=== PATIENT | male | born 1945 | race Caucasian/White ===

== ENCOUNTER → 2017-11-28 | Outpatient (CLI) | payer OTHER ==
[~2017-11-28] MED LIST: ASPI81TA25 PO; ATOR-24 PO; CLOP1TAB5 PO; LISI2.5T5 PO; METO25TA3 PO
[2017-11-28 12:06] LABS: HEMATOCRIT 41.2 % (42-52); HEMOGLOBIN 14.1 g/dL (14.0-18.0); MEAN CELL VOLUME 93.8 fL (80-100); MEAN CORPUSCULAR HEMOGLOBIN 32.1 pg (25-34); MEAN CORPUSCULAR HGB CONC 34.2 g/dl (32-36); MEAN PLATELET VOLUME 10.7 fL (7.4-10.4); PLATELET COUNT 131 K/uL (130-400); RED CELL DISTRIBUTION WIDTH CV 12.9 % (11.5-14.5); RED CELL DISTRIBUTION WIDTH SD 44.4 fL (36.4-46.3)
[2017-11-28 12:41] LABS: ALT/SGPT 23 U/L (12-78); AST/SGOT 16 U/L (15-37); BLOOD UREA NITROGEN 17 mg/dl (7-18); CALCIUM 8.7 mg/dl (8.5-10.1); CARBON DIOXIDE 27 mmol/L (21-32); CREATININE 1.14 mg/dl (0.60-1.40); GLUCOSE 111 mg/dl (70-99); POTASSIUM 3.7 mmol/L (3.5-5.1); SODIUM 136 mmol/L (136-145)
[2017-11-28 12:44] LABS: CHOLESTEROL 192 mg/dl (0-200); LDL CHOLESTEROL CALCULATED 107 mg/dl
== END | disposition home or self-care (01) ==
LOC: C.LAB1850 10:28
PROVIDERS: ATTEND Internal Medicine Cardiovascular Disease
DX: I10 Essential (primary) hypertension (principal); E78.5 Hyperlipidemia, unspecified; I25.10 Atherosclerotic heart disease of native coronary artery without angina pectoris; D72.819 Decreased white blood cell count, unspecified; R07.89 Other chest pain

== ENCOUNTER 2019-12-08 08:39 | Inpatient (IN) ==
[2019-12-08] MEDS ORDERED: NITROGLYCERIN SL 0.4 MG/TAB TAB ONE (08:54)
[2019-12-08] MEDS ORDERED: ASPIRIN CHEW 324 MG ONE (08:54)
[2019-12-08] MEDS ORDERED: NITROGLYCERIN SL 0.4 MG/TAB TAB SL PRN (08:57)
[2019-12-08] MEDS ORDERED: ASPIRIN CHEW 324 MG PO STA (08:57)
[2019-12-08] MEDS ORDERED: SODIUM CHLORIDE 0.9% 500 ML IV SCH (09:00)
[2019-12-08] MEDS ORDERED: OPTIRAY 320 125ml IV PRN (09:06)
[2019-12-08 09:12] LABS: Basophils # (auto) 0.01 K/uL (0-0.2); Basophils % (auto) 0.2 %; Eosinophils # (auto) 0.05 K/uL (0-0.5); Eosinophils % (auto) 0.8 %; Hematocrit (blood only) 42.5 % (42-52); Hemoglobin 14.6 g/dL (14.0-18.0); Immature Granulocytes # (auto) 0.01 K/uL (0.00-0.02); Immature Granulocytes % (auto) 0.2 %; Lymphocytes # (auto) 0.82 K/uL (1.2-3.4); Lymphocytes % (auto) 13.2 %; Mean Corpuscular Hemoglobin 31.9 pg (25-34); Mean Corpuscular Hgb Conc 34.4 g/dL (32-36); Mean Corpuscular Volume 92.8 fL (80-100); Mean Platelet Volume 10.5 fL (7.4-10.4); Monocytes # (auto) 0.57 K/uL (0.11-0.59); Monocytes % (auto) 9.2 %; Neutrophils # (auto) 4.73 K/uL (1.4-6.5); Neutrophils % (auto) 76.4 %; Platelet Count 147 K/uL (130-400); RDW Standard Deviation 44.1 fL (36.4-46.3); Red Blood Count 4.58 M/uL (4.7-6.1); White Blood Count 6.19 K/uL (4.8-10.8)
[2019-12-08 09:12] LABS: iSTAT Creatinine 1.2 mg/dl (0.6-1.3); iSTAT Ionized Calcium 1.14 mmol/l (1.12-1.32); iSTAT Potassium 3.6 mmol/L (3.3-5.0)
[2019-12-08 09:24] LABS: Albumin Level 3.6 gm/dl (3.4-5.0); BUN Creatinine Ratio 11.9 (10-20); Calcium 8.8 mg/dl (8.5-10.1); Est GFR (African American) 66.4; Est GFR (Non-African American) 57.3; Potassium 3.5 mmol/L (3.5-5.1)
[2019-12-08] MEDS ORDERED: MoRPHine SULFATE 2 MG/ML CARP ONE (09:24)
[2019-12-08] MEDS ORDERED: MoRPHine SULFATE 2 MG/ML CARP IV STA (09:24)
[2019-12-08] MEDS ORDERED: ONDANSETRON INJ 2 MG/ML 2 ML VIAL IV STA (09:24)
[2019-12-08] MEDS ORDERED: ONDANSETRON INJ 2 MG/ML 2 ML VIAL ONE (09:24)
[2019-12-08 09:29] LABS: Partial Thromboplastin Ratio 0.9; Partial Thromboplastin Time 23.9 Seconds (21.0-31.0)
--- NOTE | 2019-12-08 09:33 | CT Scan Report ---
CT angio chest dissec wo/w con CT DOSE: HISTORY: Chest pain eval for dissection TECHNIQUE: Multiaxial CT images of the chest, abdomen, and pelvis were performed both before and afte r the intravenous administration of contrast to evaluate the aorta. Maximal intensity projection imag es were also obtained. A dose lowering technique was utilized adhering to the principles of ALARA. COMPARISON STUDY: 08/06/2018 FINDINGS: Thoracic aorta shows no evidence for aneurysm or dissection. Root of a thoracic aorta is 3. 5 cm. The lungs show slight interstitial change is considered primarily chronic. There is a 7 mm righ t middle lobe nodule unchanged from the prior study. The 4 mm subpleural nodule of the right middle l obe is unchanged. No new or interval findings. Right renal cyst unchanged. IMPRESSION: No evidence for an aortic dissection. Lungs are grossly clear. Stable small bilateral pulmonary nodul es. ACT 112: Negative or not required by law. The above report was generated using voice recognition software. It may contain grammatical, syntax or spelling errors. Electronically signed by: Aleksey Najera M.D. 12/08/2019 9:32 AM
[2019-12-08 09:36] LABS: Albumin Globulin Ratio 0.9 (0.9-2); Bilirubin,Total 0.7 mg/dl (0.2-1); Globulin 3.8 gm/dl (2.5-4.0); Total Protein 7.4 gm/dl (6.4-8.2); Troponin I 0.212 ng/ml (0-0.045)
--- NOTE | 2019-12-08 09:39 | CT Scan Report ---
CT angio abdomen pelvis w con CLINICAL HISTORY: 74 years-old Male presenting with epigastric pain, eval for AAA/disect. TECHNIQUE: Multidetector CT angiography of the abdomen and pelvis was performed after the administrat ion of intravenous contrast. 3-D volumetric and/or maximum intensity projection (MIP) images were sub sequently reconstructed for review. IV contrast: 120 mL of Optiray 320. One or more dose lowering luana hniques were used consistent with the principles of ALARA (as low as reasonably achievable), includin g automatic exposure control, mA or kV adjustment to individual patient size, and/or use of iterative reconstruction. Stenosis measurements were based on NASCET-like criteria (distal lumen diameter as t he denominator for stenosis measurement). COMPARISON: 08/06/2018. CT DOSE (mGy.cm): The estimated cumulative dose is 1477.96 mGy.cm. FINDINGS: Office Support Specialist topogram: Unremarkable. Vasculature: Mild atherosclerosis of the abdominal aorta. Aneurysmal dilatation of the infrarenal portion measurin g up to 2.7 x 2.7 cm. This previously measured 2.6 cm. The length of the aneurysm measures 3.5 cm, si milar to prior. The degree of mural thrombus/noncalcified atherosclerotic plaque has increased and re sults in less than 50% luminal stenosis. Note made of a left retroaortic renal vein. Origins of the m ajor branch vessels widely patent, however, up to 50% stenosis evident in the proximal 1 cm of the ce liac artery with poststenotic mild dilatation. This may relate to the phase of respiration and physio logic compression by the diaphragmatic crura. Mild atherosclerosis of the origin and proximal right r enal artery without stenosis. 2 left renal arteries noted. Inferior mesenteric artery also patent. Bi lateral common, internal, and external iliac arteries widely patent. Lateral common, superficial and deep femoral arteries patent in the visualized portions. Remaining abdomen and pelvis: Lung bases: Normal heart size. No pericardial or pleural effusion. Minimal dependent changes likely a telectasis. Mild bronchial wall thickening. Subpleural polygonal solid 5 mm nodule in the right middl e lobe, unchanged. Liver: Normal morphology. No liver lesion allowing for the early arterial phase of contrast. Conventi onal hepatic arterial anatomy. Biliary: No intrahepatic or extrahepatic biliary ductal dilatation. Normal gallbladder. Pancreas: Normal. Spleen: Normal allowing for the phase of contrast. Adrenal glands: Normal. Kidneys and ureters: Prominent parapelvic cyst at the lower pole the right kidney. Simple cyst of the lower pole the left kidney. No hydronephrosis or nephrolithiasis. Ureters nondistended. Bladder: Normal. Pelvic organs: Prostate enlargement likely secondary to benign prostatic hyperplasia. Bowel: Mild diverticulosis of the proximal sigmoid colon without wall thickening or pericolonic infla mmatory change. The appendix is normal. No bowel obstruction. Peritoneal cavity: No free fluid or intraperitoneal gas. Lymph nodes: No enlarged lymph nodes in the abdomen or pelvis. Abdominal wall: Normal. Musculoskeletal: Degenerative changes of the spine. IMPRESSION: 1. Infrarenal abdominal aortic aneurysm measuring 2.7 x 2.7 cm and extending along the length of 3.5 cm. This appears slightly increased in extent though the transverse diameter is similar to prior. Mu ral thrombus/noncalcified atherosclerotic plaque increased from prior and results in less than 50% rachelle brian stenosis. 2. No evidence of dissection or focal occlusion. 3. Branch vessels widely patent. 4. Mild diverticulosis coli. No diverticulitis. 5. Stable solid right middle lobe pulmonary nodule. ACT 112: Negative or not required by law. Electronically signed by: Devon Correa M.D. 12/08/2019 9:38 AM
[2019-12-08] MEDS ORDERED: HEPARIN (PORCINE) 1000 UNIT/ML 10 ML (CATH LAB USE ONLY) ONE (10:07)
[2019-12-08] MEDS ORDERED: NITROGLYCERIN/D5W 100MCG/ML 20ML SYR ONE (10:07)
[2019-12-08] MEDS ORDERED: MIDAZOLAM HCL 1 MG/ML 2ML VIAL ONE (10:07)
[2019-12-08] MEDS ORDERED: fentaNYL citrate 100 MCG/2 ML VIAL ONE (10:07)
[2019-12-08] MEDS ORDERED: NiCARDipine HCL INJ 2.5 MG/ML 10 ML AMP ONE (10:07)
[2019-12-08] MEDS ORDERED: EPTIFIBATIDE 0.75 MG/ML 75MG VIAL (CATH LAB USE ONLY) ONE (10:36)
[2019-12-08] MEDS ORDERED: EPTIFIBATIDE 2 MG/ML 10 ML VIAL (CATH LAB USE ONLY) IV ONE (10:36)
[2019-12-08] MEDS ORDERED: ATROPINE SULFATE 0.1 MG/ML 10ML SYR IV ONE (10:51)
[2019-12-08] MEDS ORDERED: ADENOSINE IV SOLN 3 MG/ML 20 ML VIAL IV ONE (11:07)
[2019-12-08] MEDS ORDERED: ADENOSINE IV SOLN 3 MG/ML 2 ML VIAL IV ONE (11:08)
[2019-12-08] MEDS ORDERED: TICAGRELOR 90 MG TAB PO ONE (11:13)
--- NOTE | 2019-12-08 11:50 | Cardiac Catheterization ---
Cardiac Cath Procedure Full Procedure Date December 08, 2019 Pre-Procedure Diagnosis Pre-Procedure Diagnosis: STEMI AUC Score AUC Score: 09 Post-Procedure Diagnosis Post-Procedure Diagnosis: Severe CAD Procedure(s) Performed Procedure(s) Performed: Coronary Angiography, Aspiration Thrombectomy and Drug Eluting Stent Remote Sensing Surveyor Ti Archibald MD Estimated Blood Loss Estimated Blood Loss: < 15 ml Medication(s) Medication(s): Adenosine, Aspirin, Fentanyl, Heparin, Hydralazine, Integrilin, Lidocaine 1%, Nicardipine, Nitroglycerin and Versed Summary of Findings LMT: large, bifurcates. mild disease LAD: large, trans apical. S1 and D1 small. Proximal mild disease. Mid vessel stent 100% thrombotic with MAGALY 0 flow. LCx: large, nondominant. mid vessel mild diffuse disease. Distal vessel becomes small. OM1 small-ok, OM2 large, branching. No disease. PLB1+2 small. RCA: large and dominant. proximal 70-80% stenosis. Mid 40%. Distal ok. PDA and PLB ok PCI to LAD: aspiration thrombectomy--> MAGALY I flow. Distal LAD just after stent is 80% focal. Diffuse thrombus in stent. D2 small, D3 medium and branching. 100% --> 0% post PCI ( 2 overlapped HUMBERTO to mid LAD and extending past distal stenosis no dissection/perforation post PCI MAGALY 2.5 post PCI Hemodynamics Rest Ao:: 124/61 mm Hg, mean 91 mm Hg Final Ao: 40/74 mm Hg, mean 101 mm Hg LV: not performed Recommendations Recommendations: PCI without planned CABG and Management Recommendatons (DAPT with ASA and Brilinta for at least 1 year. Staged PCI of RCA. GDMT with beta otoniel, statin, +/- PCI) Specimens Specimens: None Radiation Exposure (mGy) 2062 Contrast (mls) 150 ml Procedural Complication(s) None Disposition ICU I attest to the content of the Intraoperative Record and any orders documented therein. Any exceptions are noted below. [facility] Data: Medical Office Technologist Cardiac Status Clinical evaluation leading to the procedure CAD Presenation: STEMI Anginal Classification: CCS IV Heart Failure: No Cardiogenic Shock within 24 Hours: No Cardiac Arrest within 24 Hours: No Imaging Studies Past 6 Months: No Stress Studies Past 6 Months: Yes Stress Echocardiogram: Yes - Negative STEMI OR Non-STEMI Symptom Onset Date: 12/08/19 Symptom Onset Time: 07:00 Thrombolytics: No Coronary Anatomy Dominant: Right Left Main (% Stenosis): Proximal LAD (% Stenosis): Mid (100% stent thrombosis) and Distal (80%) Circumflex (% Stenosis): Mid (mild) RCA (% Stenosis): Proximal (70-80%) and Mid (40%) Diagnostic Physicians Name: Ti Archibald MD Status: Emergency Closure Device Percutaneous Entry Location: Radial Closure Device: Radial Band Recommendations: PCI without planned CABG and Management Recommendatons (DAPT with ASA and Brilinta for at least 1 year. Staged PCI of RCA. GDMT with beta otoniel, statin, +/- PCI) PCI Indication: Staged PCI (RCA) First Noted: First EKG Lesion Segment Name: mid LAD Culprit Artery: Yes Stenosis Prior to Rx (%): 100% Chronic Total Occlusion: No Pre-Procedure MAGALY Flow: 0 Previously Treated Lesion: Timeframe: 1-2 years (2012) Treated with Stent: Yes In-Stent Thrombosis: Yes Stent Type: HUMBERTO Yes Lesion Complexity: Non-High/Non-C Lesion Length (mm): 28 Thrombus Present: Yes Bifurcation Lesion: No Guidewire Across Lesion: Yes Intraprocedure Events Significant Disection: No Perforation: No
[2019-12-08] MEDS ORDERED: ASPIRIN 81 MG ECTAB PO PRN (11:52)
--- NOTE | 2019-12-08 12:40 | Critical Care Consultation ---
Date of Consultation December 08, 2019 Assessment & Plan (1) ACS (acute coronary syndrome): Reason Critically Ill: Patient is a 74 year old male that presented with crushing chest pain that radiated to his L arm, elevated troponin 0.212 found to have a STEMI that underwent heart catheterization 12/08/19 requiring HUMBERTO of mid LAD. NEURO: CAM ICU: Negative -Patient alert and oriented x 3 -Continue to monitor CARDIAC: STEMI due to occlusion of Mid LAD -HUMBERTO placement and aspiration thrombectomy on 12/08/19 -ASA 81mg PO QD, Atorvastatin 40mg PO QD, Metoprolol 25mg PO QD, Ticagrelor 90mg PO BID -Nitroglycerin 0.4mg SL PRN -Cardiology consult -Will require DAPT with ASA and Brilinta for at least 1 year. RESPIRATORY: -Stable, no intervention at this time GI: -Stable RENAL/LYTES: -Continue to monitor lytes and replate as needed. : -No intervention at thsi time. ENDO: -No known thyroid disorder or DM. HEME: -Hgb 14.6, stable. ID: -No intervention at this time LINES/IV ACCESS: R peripheral CODE STATUS: Full DVT PROPHYLAXIS: Holding s/p cath Thank you for allowing us to participate in the care of this patient. Please refer to my attending physician's documentation for any further recommendations. (2) Chest pain: (3) Elevated troponin: Supervising Physician Co-Signing Physician Notes Dr. theodore Hercules was the resident-physician during care of patient. I separately evaluated patient for clemons portions of the history and the exam. I was present during the critical portion of medical decision making, and I discussed the case with the resident. I generally agree with the findings and plan except for any additions/exceptions noted. Continue dual antiplatelet therapy. Continue statin and beta-otoniel. Monitor blood pressure. Likely transfer for tomorrow. Discussed personally with the census taker. History of Present Illness Reason for Consultation: STEMI s/p HUMBERTO and Aspiration Thrombectomy Attending Physician: Ti Archibald MD History of Present Illness Patient is a 74 year old male with PMHx of prior STEMI requiring stent in 2012 who was consulted for observation s/p heart catheterization 12/08/19 requiring HUMBERTO placement of mid LAD and aspiration thrombectomy. Patient notes that his symptoms initially began around 4:30AM when he was awoken from sleep due to 10/10 crushing chest pain. He states that he felt it was more GI related at the time and got up and walked around without relief, at this time he also felt that his arms were both "going numb." Around 7AM he and his arrived to the ED due to his continued pain. He notes that this pain is the worst pain he has ever had. He notes that he has a relatively negative medical history, but that he had a stent place din his heart in 2012 and has been taking Metoprolol 25mg PO QD and ASA 81 mg QD since. Patient was noted to have an elevated troponin of 0.[address] of the abdomen showed a non-ruptured abdominal aortic aneurysm without evidence of dissection or focal occlusion. Chest CT was relatively negative other than a stable right middle lobe pulmonary nodule. A heart alert was called and patient was rushed to the cath lab manager. Diffuse thrombi were noted in his prior LAD stent and the Distal LAD just after the stent was 80% focal. Patient underwent an aspiration thrombectomy and 2 overlapped HUMBERTO were placed to the mid LAD extending past the distal stenosis. Patient was transferred to the ICU for observation in post. Currently, patient notes that he is feeling "much better." He states that he only has minimal chest tenderness, but that it is significantly improved. He also notes some slight dizziness. He denies any SOB, crushing chest pain, abdominal discomfort, headache, visual changes. Allergies Allergy/AdvReac Type Severity Reaction Status Date / Time No Known Allergies Allergy Verified 12/08/19 10:06 Home Medications Home Medications Medication Instructions Recorded Confirmed Type aspirin [Aspir-81] 81 mg PO DAILY PRN 08/06/18 12/08/19 History metoprolol succinate 25 mg PO QAM 08/06/18 12/08/19 History Patient History Medical History Hypertension Myocardial infarction Surgical History History of coronary artery stent placement Family History Other No pertinent family history in first degree relatives Social History Preferred Language: Armenian Chief Steward/Stewardess Required: No Beliefs That Will Affect Care: None Current Living Situation: Spouse Other Information That Helps Us Care for You: No Feels Safe at Home: Yes Safety Concerns: Feels Safe At This Time Smoking Status: Never smoker Hx Alcohol Use: No Hx Substance Use: No Review of Systems Constitutional: no fever, no chills and no weakness Eyes: Notes slight blurry vision in his L eye that has been ongoing and chronic, secondary to his pterygium. Ear, Nose, Mouth, Throat: + dizziness; no hearing loss Respiratory: no cough, no dyspnea and no pain on inspiration Cardiovascular: + chest pain (2/10, significantly improved. ); no radiating jaw, neck or arm pain, no dyspnea, no palpitations and no edema Gastrointestinal: + nausea; no abdominal pain and no vomiting Genitourinary: no dysuria Neurologic: no paralysis, no loss of sensation and no headache(s) Physical Exam Constitutional: well developed, well nourished, cooperative and comfortable; no acute distress and not in distress Eyes: normal visual guerrero by confrontation, + corneal abnormality (medial pterygium b/l, L worse than R ), EOM intact bilaterally and reactive pupils (though fairly constricted. ) ENMT: external ear and nose normal, oropharynx normal Ears: no hearing impairment Neck: normal visual inspection and trachea midline Respiratory: normal respiratory effort, lungs clear to auscultation Cardiovascular: Rate/Rhythm: regular rate and regular rhythm Heart Sounds: no murmur Vessels: posterior tibial pulses present, dorsalis pedis pulses present and radial pulses present (did not check R as he had his intervention through there.); no JVD and no carotid bruit Extremities: no edema Gastrointestinal (Abdomen): normal bowel sounds, soft, nontender, no hepatosplenomegaly Musculoskeletal: no cyanosis or clubbing, extremities motor strength 5/5 Neurologic: PERRL, EOMI, accommodation nl, no face palsy, no dysarthria Psychiatric: A+Ox3, euthymic affect Lymphatic: no cervical lymphadenopathy Results & Data Vital Signs (Past 12 Hours) Vital Signs Temp Pulse Pulse Resp BP BP Pulse Ox 12/08/19 11:57 36.5 C 75 21 118/84 99 12/08/19 11:40 57 L 18 112/79 96 12/08/19 11:25 60 18 124/80 99 12/08/19 10:22 62 18 131/75 95 12/08/19 09:41 56 L 18 135/87 97 12/08/19 09:21 77 16 144/80 H 98 12/08/19 09:08 94 12/08/19 08:55 98 12/08/19 08:50 36.8 C 60 20 155/87 H 98 Resident Activity Tracking Resident Involvement: Resident Care Provided Care Provided: Adult Hospital Medicine (1) Chest pain Chest pain type: unspecified Qualified Code(s): R07.9 - Chest pain, unspecified
[2019-12-08] MEDS: METOPROLOL SUCC 25MG EXT REL TAB PO SCH (14:03)
[2019-12-08] MEDS: ATORVASTATIN 40 MG TAB PO SCH (14:03)
[2019-12-08] MEDS: HEPARIN SOD 5,000 UNIT/0.5 ML VIAL SQ SCH ×2 (14:03→20:27)
--- NOTE | 2019-12-08 15:20 | Billing Data ---
Date of Service December 08, 2019 Coding Level of Care Code 21761 Initial Inpt Care Lvl 3
--- NOTE | 2019-12-08 15:38 | Electrocardiogram Report ---
Test Reason : Blood Pressure : / mmHG Vent. Rate : 057 BPM Atrial Rate : 057 BPM P-R Int : 160 ms QRS Dur : 092 ms QT Int : 426 ms P-R-T Axes : 059 -41 010 degrees QTc Int : 414 ms Sinus bradycardia Left axis deviation Incomplete right bundle branch block Septal infarct , age undetermined Nonspecific ST elevation Lateral leads Abnormal ECG When compared with ECG of 06-AUG-2018 01:38, Septal infarct is now Present ST elevation now present in Lateral leads Confirmed by David Easley ([id number]) on 12/08/2019 3:38:06 PM Referred By: Confirmed By:David Easley
--- NOTE | 2019-12-08 15:43 | Emergency Department Note ---
Entered by Loni Cortes acting as a scribe for History of Present Illness General Chief complaint: Chest Pain Stated complaint: CHEST PAIN, ARM NUMBNESS, HEADACHE Time Seen by Provider: 12/08/19 08:57 Source: patient History of Present Illness Onset (ago): hour(s) (0445 this morning) Location: chest Radiation: back Severity: similar to prior episodes Pain Consistency: + other (sudden) Quality: + sharp Relieved By: not by medication (Aspirin) Associated symptoms: + chest pain, + nausea/vomiting (Positive nausea. Negative vomiting. ) and + other (abdominal pain); no fever/chills and no shortness of breath Treatments prior to arrival: aspirin The patient is a 74 year old male presenting to the Emergency Department complaining of sudden chest pain starting at 0445 this morning. The patient reports that he has chest pain that is radiating to his back. He describes this pain as sharp. He states that he is nauseous. He explains that he has upper abdominal pain. He notes that he experienced these symptoms before in 2012 and at that time had cardiac stents placed. 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 The patient denies shortness of breath, fevers, chills, cough, alcohol use drug use and recent travel. 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 and A total of 10 systems reviewed and were otherwise negative Physical Exam Vital Signs Vital Signs - 24 hr 12/08/19 08:50 12/08/19 08:55 12/08/19 09:08 Temperature 36.8 C Temperature Source Oral Pulse Rate 60 Pulse Rate [Left Finger] Respiratory Rate 20 Respiratory Effort / Characteristics Non-Labored Spontaneous Respiratory Depth Normal Respiratory Pattern Regular Blood Pressure 155/87 H Blood Pressure [Left Arm] Blood Pressure Mean 109 Blood Pressure Mean [Left Arm] Blood Pressure Position Lying Pulse Oximetry 98 98 94 Oxygen Delivery Method Room Air Room Air Room Air Sepsis Recent Fever Within 48 Hours No Sepsis New/Unexplained Change in Mental Status No Sepsis Action Taken by Nursing No Action Required 12/08/19 09:21 12/08/19 09:41 12/08/19 10:22 Temperature Temperature Source Pulse Rate Pulse Rate [Left Finger] 77 56 L 62 Respiratory Rate 16 18 18 Respiratory Effort / Characteristics Respiratory Depth Respiratory Pattern Blood Pressure Blood Pressure [Left Arm] 144/80 H 135/87 131/75 Blood Pressure Mean Blood Pressure Mean [Left Arm] 101 103 93 Blood Pressure Position Pulse Oximetry 98 97 95 Oxygen Delivery Method Room Air Room Air Room Air Sepsis Recent Fever Within 48 Hours Sepsis New/Unexplained Change in Mental Status Sepsis Action Taken by Nursing General: Uncomfortable-appearing older male in no acute distress. HEENT: Normal cephalic atraumatic. Pupils are equal round and reactive to light. Extraocular movements are intact. Oropharynx is pink with moist mucous membranes. No swelling of the mouth lips or tongue. Neck: Supple with a midline trachea. No meningeal signs or stiffness, no JVD or bruits. No Stridor. Chest: Clear to auscultation bilaterally. No wheezes or rhonchi. No increased work of breathing. Heart: regular rate and rhythm. Abdomen: Abdomen is tender in epigastric area. Soft, nondistended without rebound guarding or rigidity. Extremities: No cyanosis clubbing or edema. No calf tenderness or asymmetry Spine/Back. Non tender to palpation. No CVA tenderness Skin: Non-diaphoretic. Good turgor without rashes. Neurologic exam: Cranial nerves two through 12 are intact. Motor and sensation are intact and symmetrical throughout. Course Course 0850: The patient was evaluated in room C3, and a complete history and physical examination were performed. 902: I reevaluated the patient at this time who experienced minimal relief after receiving Nitroglycerin. He is now going to CT. 920: I checked on the patient at this time who reports that he vomited at CT an d that his abdominal pain feels slightly better. He currently rates his abdominal pain 03/10. 0939: I updated the patient at this time. 1002: I discussed the patient's case with Dr. Easley - Zipper Machine Operator. He recommends to call a heart alert. 1004: I called a heart alert at this time. 1006: I updated the patient and his at this time. 1020: I discussed the patients case with Dr. Jade Interventional radiologist. He will evaluate the patient for further management. Administered Medications Atorvastatin Calcium (Lipitor) 40 mg PO [facility] Stop: 01/07/20 11:59 Last Admin: 12/08/19 14:03 Dose: 40 mg Documented by: [id number] Heparin Sodium (Porcine) (Heparin Sodium (Porcine)) 5,000 units SQ TID [facility] Stop: 01/07/20 13:59 Last Admin: 12/08/19 14:03 Dose: 5,000 units Documented by: [id number] Cosigned by: [id number] Ioversol (Optiray 320 125ml) 120 ml IV ONCE PRN PRN Reason: Interaction Checking Stop: 12/12/19 09:05 Last Admin: 12/08/19 09:07 Dose: 120 ml Documented by: [id number] Metoprolol Succinate (Toprol Xl) 25 mg PO [facility] Stop: 01/07/20 11:59 Last Admin: 12/08/19 14:03 Dose: 25 mg Documented by: [id number] Discontinued Medications Adenosine (Adenoscan) Confirm Administered Dose 60 mg IV .STK-MED ONE Stop: 12/08/19 11:08 Last Admin: 12/08/19 13:10 Dose: Not Given Documented by: [id number] Adenosine (Adenosine) Confirm Administered Dose 6 mg IV .STK-MED ONE Stop: 12/08/19 11:09 Last Admin: 12/08/19 13:10 Dose: Not Given Documented by: [id number] Aspirin (Aspirin) Confirm Administered Dose 324 mg .ROUTE .STK-MED ONE Stop: 12/08/19 08:55 Last Admin: 12/08/19 08:56 Dose: 324 mg Documented by: [id number] Aspirin (Aspirin) 324 mg PO NOW STA Stop: 12/08/19 08:58 Last Admin: 12/08/19 09:25 Dose: Not Given Documented by: [id number] Atropine Sulfate (Atropine Sulfate) Confirm Administered Dose 1 mg IV .STK-MED ONE Stop: 12/08/19 10:52 Last Admin: 12/08/19 13:10 Dose: Not Given Documented by: [id number] Eptifibatide (Integrilin (Spouter Use Only)) Confirm Administered Dose 40 mg IV .STK-MED ONE Stop: 12/08/19 10:37 Last Admin: 12/08/19 13:09 Dose: Not Given Documented by: [id number] Eptifibatide (Integrilin (Spouter Use Only)) Confirm Administered Dose 75 mg .ROUTE .STK-MED ONE Stop: 12/08/19 10:37 Last Admin: 12/08/19 13:10 Dose: Not Given Documented by: [id number] Fentanyl Citrate (Fentanyl Citrate) Confirm Administered Dose 100 mcg .ROUTE .STK-MED ONE Stop: 12/08/19 10:08 Last Admin: 12/08/19 13:09 Dose: Not Given Documented by: [id number] Heparin Sodium (Porcine) (Heparin Iv Bolus (Spouter Use Only)) Confirm Administered Dose 10,000 units .ROUTE .STK-MED ONE Stop: 12/08/19 10:08 Last Admin: 12/08/19 13:09 Dose: Not Given Documented by: [id number] Heparin Sodium/Sodium Chloride (Heparin/Nss 1000 Unit/500ml Flush Bag) Confirm Administered Dose 3,000 units IV .STK-MED ONE Stop: 12/08/19 10:08 Last Admin: 12/08/19 13:09 Dose: Not Given Documented by: [id number] Sodium Chloride (Nss) 500 mls @ 999 mls/hr IV .Q31M SAY Stop: 12/08/19 09:30 Last Infusion: 12/08/19 09:57 Dose: 0 mls/hr Documented by: [id number] Admin: 12/08/19 09:28 Dose: 999 mls/hr Documented by: [id number] Midazolam HCl (Versed) Confirm Administered Dose 2 mg .ROUTE .STK-MED ONE Stop: 12/08/19 10:08 Last Admin: 12/08/19 13:09 Dose: Not Given Documented by: [id number] Morphine Sulfate (Morphine Sulfate) 2 mg IV NOW STA Stop: 12/08/19 09:25 Last Admin: 12/08/19 09:26 Dose: 2 mg Documented by: [id number] Morphine Sulfate (Morphine Sulfate) Confirm Administered Dose 2 mg .ROUTE .STK- MED ONE Stop: 12/08/19 09:25 Last Admin: 12/08/19 09:25 Dose: Not Given Documented by: [id number] Nicardipine HCl (Cardene) Confirm Administered Dose 25 mg .ROUTE .STK-MED ONE Stop: 12/08/19 10:08 Last Admin: 12/08/19 13:09 Dose: Not Given Documented by: [id number] Nitroglycerin (Nitrostat) Confirm Administered Dose 0.4 mg .ROUTE .STK-MED ONE Stop: 12/08/19 08:55 Last Admin: 12/08/19 08:56 Dose: 0.4 mg Documented by: [id number] Nitroglycerin/Dextrose (Nitroglycerin/D5w 100 Mcg/Ml 20ml Syringe) Confirm Administered Dose 2,000 mcg .ROUTE .STK-MED ONE Stop: 12/08/19 10:08 Last Admin: 12/08/19 13:09 Dose: Not Given Documented by: [id number] Ondansetron HCl (Zofran) 4 mg IV NOW STA Stop: 12/08/19 09:25 Last Admin: 12/08/19 09:25 Dose: 4 mg Documented by: [id number] Ondansetron HCl (Zofran) Confirm Administered Dose 4 mg .ROUTE .STK-MED ONE Stop: 12/08/19 09:25 Last Admin: 12/08/19 09:29 Dose: Not Given Documented by: [id number] Ticagrelor (Brilinta) Confirm Administered Dose 180 mg PO .STK-MED ONE Stop: 12/08/19 11:14 Last Admin: 12/08/19 13:10 Dose: Not Given Documented by: [id number] Critical Care Time Critical Care Time: Yes Total Critical Care Time: 45 Due to the patient's chest pain with concern for acute coronary syndrome/OH and need to get multiple EKGs a quick work-up and multiple medications for his ongoing chest pain, I have personally spent greater than 45 minutes of critical care time in the direct management of this patient. This includes bedside care, interpretation of diagnostic studies, and testing, discussion with consultants, patient, and family members, and other required patient management activities. This 45 minutes is in excess of all separately billable procedures. Medical Decision Making Differential Diagnosis Differential diagnoses include acute OH/coronary syndrome, aneurism peptic ulcer disease, pancreatitis and electrolyte or metabolic abnormality amongst others. Medical Records Attestation: I reviewed the patient's medical records. Home Medications Current Medication List: was personally reviewed by me Laboratory Data Attestation: I reviewed the patient's lab results. Result diagrams: 12/08/19 08:50 12/08/19 08:50 Lab Results 12/08/19 12/08/19 12/08/19 Range/Units 08:50 08:50 08:50 WBC 6.19 (4.8-10.8) K/uL RBC 4.58 L (4.7-6.1) M/uL Hgb 14.6 (14.0-18.0) g/dL POC Hgb (14.0-18.0) g/dl Hct 42.5 (42-52) % POC Hct (42-52) % MCV 92.8 (80-100) fL MCH 31.9 (25-34) pg MCHC 34.4 (32-36) g/dL RDW Std Deviation 44.1 (36.4-46.3) fL RDW Coeff of Lee 13.0 (11.5-14.5) % Plt Count 147 (130-400) K/uL MPV 10.5 H (7.4-10.4) fL Immature Gran % (Auto) 0.2 % Neut % (Auto) 76.4 % Lymph % (Auto) 13.2 % [place] % (Auto) 9.2 % Eos % (Auto) 0.8 % Baso % (Auto) 0.2 % Immature Gran # (Auto) 0.01 (0.00-0.02) K/uL Neut # (Auto) 4.73 (1.4-6.5) K/uL Lymph # (Auto) 0.82 L (1.2-3.4) K/uL [place] # (Auto) 0.57 (0.11-0.59) K/uL Eos # (Auto) 0.05 (0-0.5) K/uL Baso # (Auto) 0.01 (0-0.2) K/uL PT 11.0 (9.0-12.0) Seconds INR 1.0 (0.9-1.1) APTT 23.9 (21.0-31.0) Seconds PTT Ratio 0.9 Activ Coag Time Kaolin (94-140) SECONDS POC Sodium (135-144) mmol/L Sodium 138 (136-145) mmol/L POC Potassium (3.3-5.0) mmol/L Potassium 3.5 (3.5-5.1) mmol/L POC Chloride (101-112) mmol/L Chloride 106 (98-107) mmol/L Carbon Dioxide 24 (21-32) mmol/L POC Total CO2 (24-31) mEq/l Anion Gap 8.0 (3-11) POC Anion Gap (16-25) mmol/L POC BUN (7-18) mg/dl BUN 15 (7-18) mg/dl Creatinine 1.24 (0.6-1.4) mg/dl POC Creatinine (0.6-1.3) mg/dl Est Cr Clr Drug Dosing 55.0 ml/min Est GFR ( Amer) 66.4 Est GFR (Non-Af Amer) 57.3 BUN/Creatinine Ratio 11.9 (10-20) Glucose 121 H (70-99) mg/dl POC Glucose (other) (70-99) mg/dl Calcium 8.8 (8.5-10.1) mg/dl POC Ioniz Calcium Norris (1.12-1.32) mmol/l Magnesium (1.8-2.4) mg/dl Total Bilirubin 0.7 (0.2-1) mg/dl AST 16 (15-37) U/L ALT 23 (12-78) U/L Alkaline Phosphatase 75 (45-117) U/L Troponin I 0.212 H* (0-0.045) ng/ml Total Protein 7.4 (6.4-8.2) gm/dl Albumin 3.6 (3.4-5.0) gm/dl Globulin 3.8 (2.5-4.0) gm/dl Albumin/Globulin Ratio 0.9 (0.9-2) Lipase 213 (73-393) U/L 12/08/19 12/08/19 12/08/19 Range/Units 08:50 08:59 10:46 WBC (4.8-10.8) K/uL RBC (4.7-6.1) M/uL Hgb (14.0-18.0) g/dL POC Hgb 15.0 (14.0-18.0) g/dl Hct (42-52) % POC Hct 44 (42-52) % MCV (80-100) fL MCH (25-34) pg MCHC (32-36) g/dL RDW Std Deviation (36.4-46.3) fL RDW Coeff of Lee (11.5-14.5) % Plt Count (130-400) K/uL MPV (7.4-10.4) fL Immature Gran % (Auto) % Neut % (Auto) % Lymph % (Auto) % [place] % (Auto) % Eos % (Auto) % Baso % (Auto) % Immature Gran # (Auto) (0.00-0.02) K/uL Neut # (Auto) (1.4-6.5) K/uL Lymph # (Auto) (1.2-3.4) K/uL Montour # (Auto) (0.11-0.59) K/uL Eos # (Auto) (0-0.5) K/uL Baso # (Auto) (0-0.2) K/uL PT (9.0-12.0) Seconds INR (0.9-1.1) APTT (21.0-31.0) Seconds PTT Ratio Activ Coag Time Kaolin 208 H (94-140) SECONDS POC Sodium 138 (135-144) mmol/L Sodium (136-145) mmol/L POC Potassium 3.6 (3.3-5.0) mmol/L Potassium (3.5-5.1) mmol/L POC Chloride 105 (101-112) mmol/L Chloride (98-107) mmol/L Carbon Dioxide (21-32) mmol/L POC Total CO2 24 (24-31) mEq/l Anion Gap (3-11) POC Anion Gap 14.0 L (16-25) mmol/L POC BUN 15 (7-18) mg/dl BUN (7-18) mg/dl Creatinine (0.6-1.4) mg/dl POC Creatinine 1.2 (0.6-1.3) mg/dl Est Cr Clr Drug Dosing ml/min Est GFR ( Amer) Est GFR (Non-Af Amer) BUN/Creatinine Ratio (10-20) Glucose (70-99) mg/dl POC Glucose (other) 119 H (70-99) mg/dl Calcium (8.5-10.1) mg/dl POC Ioniz Calcium Norris 1.14 (1.12-1.32) mmol/l Magnesium 2.1 (1.8-2.4) mg/dl Total Bilirubin (0.2-1) mg/dl AST (15-37) U/L ALT (12-78) U/L Alkaline Phosphatase (45-117) U/L Troponin I (0-0.045) ng/ml Total Protein (6.4-8.2) gm/dl Albumin (3.4-5.0) gm/dl Globulin (2.5-4.0) gm/dl Albumin/Globulin Ratio (0.9-2) Lipase (73-393) U/L 12/08/19 Range/Units 11:02 WBC (4.8-10.8) K/uL RBC (4.7-6.1) M/uL Hgb (14.0-18.0) g/dL POC Hgb (14.0-18.0) g/dl Hct (42-52) % POC Hct (42-52) % MCV (80-100) fL MCH (25-34) pg MCHC (32-36) g/dL RDW Std Deviation (36.4-46.3) fL RDW Coeff of Lee (11.5-14.5) % Plt Count (130-400) K/uL MPV (7.4-10.4) fL Immature Gran % (Auto) % Neut % (Auto) % Lymph % (Auto) % [place] % (Auto) % Eos % (Auto) % Baso % (Auto) % Immature Gran # (Auto) (0.00-0.02) K/uL Neut # (Auto) (1.4-6.5) K/uL Lymph # (Auto) (1.2-3.4) K/uL [place] # (Auto) (0.11-0.59) K/uL Eos # (Auto) (0-0.5) K/uL Baso # (Auto) (0-0.2) K/uL PT (9.0-12.0) Seconds INR (0.9-1.1) APTT (21.0-31.0) Seconds PTT Ratio Activ Coag Time Kaolin 307 H (94-140) SECONDS POC Sodium (135-144) mmol/L Sodium (136-145) mmol/L POC Potassium (3.3-5.0) mmol/L Potassium (3.5-5.1) mmol/L POC Chloride (101-112) mmol/L Chloride (98-107) mmol/L Carbon Dioxide (21-32) mmol/L POC Total CO2 (24-31) mEq/l Anion Gap (3-11) POC Anion Gap (16-25) mmol/L POC BUN (7-18) mg/dl BUN (7-18) mg/dl Creatinine (0.6-1.4) mg/dl POC Creatinine (0.6-1.3) mg/dl Est Cr Clr Drug Dosing ml/min Est GFR ( Amer) Est GFR (Non-Af Amer) BUN/Creatinine Ratio (10-20) Glucose (70-99) mg/dl POC Glucose (other) (70-99) mg/dl Calcium (8.5-10.1) mg/dl POC Ioniz Calcium Norris (1.12-1.32) mmol/l Magnesium (1.8-2.4) mg/dl Total Bilirubin (0.2-1) mg/dl AST (15-37) U/L ALT (12-78) U/L Alkaline Phosphatase (45-117) U/L Troponin I (0-0.045) ng/ml Total Protein (6.4-8.2) gm/dl Albumin (3.4-5.0) gm/dl Globulin (2.5-4.0) gm/dl Albumin/Globulin Ratio (0.9-2) Lipase (73-393) U/L Imaging Data Radiologist's Impression: Radiology results as stated below per my review and the radiologist's interpretation: CT angio chest dissec wo/w con CT DOSE: HISTORY: Chest pain eval for dissection TECHNIQUE: Multiaxial CT images of the chest, abdomen, and pelvis were performed both before and after the intravenous administration of contrast to evaluate the aorta. Maximal intensity projection images were also obtained. A dose lowering technique was utilized adhering to the principles of ALARA. COMPARISON STUDY: 08/06/2018 FINDINGS: Thoracic aorta shows no evidence for aneurysm or dissection. Root of a thoracic aorta is 3.5 cm. The lungs show slight interstitial change is considered primarily chronic. There is a 7 mm right middle lobe nodule unchanged from the prior study. The 4 mm subpleural nodule of the right middle lobe is unchanged. No new or interval findings. Right renal cyst unchanged. IMPRESSION: No evidence for an aortic dissection. Lungs are grossly clear. Stable small bilateral pulmonary nodules. ACT 112: Negative or not required by law. The above report was generated using voice recognition software. It may contain grammatical, syntax or spelling errors. Electronically signed by: Aleksey Najera M.D. 12/08/2019 9:[address] angio abdomen pelvis w con CLINICAL HISTORY: 74 years-old Male presenting with epigastric pain, eval for AAA/disect. TECHNIQUE: Multidetector CT angiography of the abdomen and pelvis was performed after the administration of intravenous contrast. 3-D volumetric and/or maximum intensity projection (MIP) images were subsequently reconstructed for review. IV contrast: 120 mL of Optiray 320. One or more dose lowering techniques were used consistent with the principles of ALARA (as low as reasonably achievable), including automatic exposure control, mA or kV adjustment to individual patient size, and/or use of iterative reconstruction. Stenosis measurements were based on NASCET-like criteria (distal lumen diameter as the denominator for stenosis measurement). COMPARISON: 08/06/2018. CT DOSE (mGy.cm): The estimated cumulative dose is 1477.96 mGy.cm. FINDINGS: Licensed Plumber topogram: Unremarkable. Vasculature: Mild atherosclerosis of the abdominal aorta. Aneurysmal dilatation of the infrarenal portion measuring up to 2.7 x 2.7 cm. This previously measured 2.6 cm. The length of the aneurysm measures 3.5 cm, similar to prior. The degree of mural thrombus/noncalcified atherosclerotic plaque has increased and results in less than 50% luminal stenosis. Note made of a left retroaortic renal vein. Origins of the major branch vessels widely patent, however, up to 50% stenosis evident in the proximal 1 cm of the celiac artery with poststenotic mild dilatation. This may relate to the phase of respiration and physiologic compression by the diaphragmatic crura. Mild atherosclerosis of the origin and proximal right renal artery without stenosis. 2 left renal arteries noted. Inferior mesenteric artery also patent. Bilateral common, internal, and external iliac arteries widely patent. Lateral common, superficial and deep femoral arteries patent in the visualized portions. Remaining abdomen and pelvis: Lung bases: Normal heart size. No pericardial or pleural effusion. Minimal dependent changes likely atelectasis. Mild bronchial wall thickening. Subpleural polygonal solid 5 mm nodule in the right middle lobe, unchanged. Liver: Normal morphology. No liver lesion allowing for the early arterial phase of contrast. Conventional hepatic arterial anatomy. Biliary: No intrahepatic or extrahepatic biliary ductal dilatation. Normal gallbladder. Pancreas: Normal. Spleen: Normal allowing for the phase of contrast. Adrenal glands: Normal. Kidneys and ureters: Prominent parapelvic cyst at the lower pole the right kidney. Simple cyst of the lower pole the left kidney. No hydronephrosis or nephrolithiasis. Ureters nondistended. Bladder: Normal. Pelvic organs: Prostate enlargement likely secondary to benign prostatic hyperplasia. Bowel: Mild diverticulosis of the proximal sigmoid colon without wall thickening or pericolonic inflammatory change. The appendix is normal. No bowel obstruction. Peritoneal cavity: No free fluid or intraperitoneal gas. Lymph nodes: No enlarged lymph nodes in the abdomen or pelvis. Abdominal wall: Normal. Musculoskeletal: Degenerative changes of the spine. IMPRESSION: 1. Infrarenal abdominal aortic aneurysm measuring 2.7 x 2.7 cm and extending along the length of 3.5 cm. This appears slightly increased in extent though the transverse diameter is similar to prior. Mural thrombus/noncalcified atherosclerotic plaque increased from prior and results in less than 50% luminal stenosis. 2. No evidence of dissection or focal occlusion. 3. Branch vessels widely patent. 4. Mild diverticulosis coli. No diverticulitis. 5. Stable solid right middle lobe pulmonary nodule. ACT 112: Negative or not required by law. Electronically signed by: eDvon Correa M.D. 12/08/2019 9:38 AM ECG Data Attestation: I personally reviewed and interpreted this ECG as follows: Indication: + abdominal pain and + chest pain Rate (beats per minute): 56 Rhythm: + sinus bradycardia ECG Intervals/blocks: + Incomplete right bundle branch block ECG ST segments: + Nonspecific ST abnormalities ECG Findings: + Poor R wave progression Comparison ECG Date: from (08/06/18) Change: the following changes noted (Poor R wave progression is new otherwise no new changes.) Blood Pressure Blood Pressure Findings: Elevated blood pressure Blood Pressure Disposition: further management by hospitalist Additional Comments: Repeat EKG per my interpretation: sinus bradycardia at 58 bpm. Non-specific ST abnormalities. No significant change compared to first EKG done today 12/08/2019. Repeat EKG per my interpretation: Sinus bradycardia at 59 bpm. Poor R wave progression. ST depressions inferiorly which are slightly worse than second EKG done today 12/08/2019. MDM Narrative Cardiac Monitoring: An order was placed for continuous cardiac monitoring. The monitor shows a rate of 56 with sinus bradycardia. This patient comes in as described above. He woke up with chest pain. The nurses came and got me the EKG as they were concerned about him. I went and checked on him and saw him immediately. He is having severe chest pain. He took 2 baby aspirin so we gave him a full-strength aspirin here as well as nitroglycerin sublingual. IV access was established, his EKG shows some subtle increases laterally with inferiorly some mild depressions. Looking back at his old EKGs this was there before but it looks more pronounced. He was very tender in his abdomen on exam and he also had a lot of back pain so was concerned about the possibility dissection we quickly got him over to CT scan. He threw up while he was over there and his pain went down to 6 and he looked and felt much better he said the nitro did not seem to help. I gave him 2 mg of morphine IV and 4 mg of Zofran repeated the EKG it looks similar to the first 1 but may be slightly deep more depressions. His initial troponin came back mildly elevated 0.2. His pain was down about a 1 but I was concerned with the EKG changes I did discuss case with Dr. Castillo who recommended calling a heart alert this was done. I did repeat a 30 EKG which does not look significantly changed compared to #2. The patient was then sent up to the [facility] for 4 cath and likely a ngioplasty. Impression & Plan Acute OH, ACS (acute coronary syndrome), Chest pain, Epigastric abdominal pain, Vomiting, Elevated troponin Discharge Plan Visit Data *Final* Discharge Date/Time: 12/08/19 11:01 Chief Complaint: Chest Pain Stated Complaint: CHEST PAIN, ARM NUMBNESS, HEADACHE Other Complaint: Cardiac Assessment ED Provider: Maciej Rutherford Discharge Problem: Acute OH, ACS (acute coronary syndrome), Chest pain, Epigastric abdominal pain, Vomiting, Elevated troponin Patient Disposition: Being Evaluated by Surgeon Discharge Instructions Interventions: ED Discharge Assessment Last Done: 12/08/19 10:20 Discharge Problem: Acute OH Qualifiers: Myocardial infarction type: ST elevation myocardial infarction Involved coronary artery: unspecified coronary artery Qualified Code(s): I21.3 - ST elevation (STEMI) myocardial infarction of unspecified site Chest pain Qualifiers: Chest pain type: unspecified Qualified Code(s): R07.9 - Chest pain, unspecified Vomiting Qualifiers: Vomiting type: unspecified Vomiting Intractability: non-intractable Nausea presence: with nausea Qualified Code(s): R11.2 - Nausea with vomiting, unspecified The scribe's documentation has been prepared under my direction and personally reviewed by me in its entirety. I confirm that the note above accurately reflects all work, treatment, procedures, and medical decision making performed by me.
--- NOTE | 2019-12-08 15:44 | Electrocardiogram Report ---
Test Reason : Blood Pressure : / mmHG Vent. Rate : 058 BPM Atrial Rate : 058 BPM P-R Int : 166 ms QRS Dur : 092 ms QT Int : 444 ms P-R-T Axes : 063 -44 -01 degrees QTc Int : 435 ms Sinus bradycardia with marked sinus arrhythmia Left axis deviation Septal infarct (cited on or before 08-DEC-2019) T wave abnormalities in inferior leads Abnormal ECG When compared with ECG of 08-DEC-2019 08:46, (unconfirmed) No significant change was found Confirmed by David Easley ([id number]) on 12/08/2019 3:43:50 PM Referred By: REFERRED SELF Confirmed By:David Easley
--- NOTE | 2019-12-08 16:43 | Electrocardiogram Report ---
Test Reason : Blood Pressure : / mmHG Vent. Rate : 059 BPM Atrial Rate : 059 BPM P-R Int : 162 ms QRS Dur : 090 ms QT Int : 416 ms P-R-T Axes : 066 -50 022 degrees QTc Int : 411 ms Sinus bradycardia with marked sinus arrhythmia Left anterior fascicular block Septal infarct (cited on or before 08-DEC-2019) Abnormal ECG When compared with ECG of 08-DEC-2019 09:40, (unconfirmed) No significant change was found Confirmed by David Easley ([id number]) on 12/08/2019 4:43:22 PM Referred By: REFERRED SELF Confirmed By:David Easley
--- NOTE | 2019-12-08 17:07 | XCELERA ---
[id number] [email or web address]\[email or web address]\[id number]
[2019-12-08] MEDS: TICAGRELOR 90 MG TAB PO SCH (23:03)
[2019-12-09 06:15] LABS: Estimated Average Glucose 120 mg/dl; Hemoglobin A1C 5.8 % (4.5-5.6)
[2019-12-09 06:25] LABS: BUN Creatinine Ratio 11.9 (10-20); Calcium 8.7 mg/dl (8.5-10.1); Est GFR (African American) 73.5; Est GFR (Non-African American) 63.4; Potassium 3.8 mmol/L (3.5-5.1)
[2019-12-09 06:47] LABS: Phosphorus 2.6 mg/dl (2.5-4.9)
--- NOTE | 2019-12-09 08:21 | Critical Care Progress Note ---
Date of Service December 09, 2019 Assessment & Plan (1) ACS (acute coronary syndrome): Reason Critically Ill: Patient is a 74 year old male that presented with crushing chest pain that radiated to his L arm, elevated troponin 0.212 found to have a STEMI that underwent heart catheterization 12/08/19 requiring HUMBERTO of mid LAD. 24 Hour Events: No overnight events, patient did well and noted that he was able to get some sleep. NEURO: CAM ICU: Negative -Patient alert and oriented x 3 -Continue to monitor CARDIAC: STEMI due to occlusion of Mid LAD -HUMBERTO placement and aspiration thrombectomy on 12/08/19 -Continue ASA 81mg PO QD, Atorvastatin 40mg PO QD, Metoprolol 25mg PO QD, Ticagrelor 90mg PO BID -Nitroglycerin 0.4mg SL PRN -Cardiology consult -Will require DAPT with ASA and Brilinta for at least 1 year. RESPIRATORY: -Stable, no intervention at this time GI: -Stable RENAL/LYTES: -Continue to monitor lytes and replete as needed. : -No intervention at this time. ENDO: -No known thyroid disorder or DM. HEME: -Hgb 14.6, stable. ID: -No intervention at this time LINES/IV ACCESS: R peripheral CODE STATUS: Full DVT PROPHYLAXIS: Holding s/p cath DISPO: Patient is stable at this point in time for downgrade out of ICU. Thank you for allowing us to participate in the care of this patient. Please refer to my attending physician's documentation for any further recommendations. (2) Chest pain: (3) Elevated troponin: Admission and Anticipated Discharge Date Admission Date: December 08, 2019 Supervising Physician Co-Signing Physician Notes Dr. Bernstein was the resident-physician during care of patient. I separately evaluated patient for clemons portions of the history and the exam. I was present during the critical portion of medical decision making, and I discussed the case with the resident. I generally agree with the findings and plan aside for any exceptions/additions noted. Patient significantly clinically improved. A little bit hypotensive this morning. Holding his morning dose of metoprolol. Otherwise alert and oriented. No abdominal pain this morning. Okay for transfer to the floor. Discussed with social media director. Subjective Patient notes no acute events overnight. States that his chest pain has resolved, but that he still has some slight abdominal discomfort that improves with food. Review of Systems Constitutional: + weakness; no fever and no chills Eyes: Notes slight blurry vision in his L eye that has been ongoing and chronic, secondary to his pterygium. Ear, Nose, Mouth, Throat: no hearing loss and no dizziness Respiratory: no cough and no dyspnea Cardiovascular: no chest pain, no chest pain at rest, no radiating jaw, neck or arm pain, no dyspnea, no palpitations, no lightheadedness and no edema Gastrointestinal: + abdominal pain; no nausea, no vomiting, no constipation and no diarrhea/loose stools Genitourinary: no dysuria Physical Exam Constitutional: well developed, well nourished, cooperative and comfortable; no acute distress and not in distress Eyes: normal visual guerrero by confrontation, + corneal abnormality (medial pterygium b/l, L worse than R ), EOM intact bilaterally and reactive pupils (though fairly constricted. ) ENMT: external ear and nose normal, oropharynx normal Ears: no hearing impairment Neck: normal visual inspection and trachea midline Respiratory: normal respiratory effort, lungs clear to auscultation Cardiovascular: Rate/Rhythm: regular rate and regular rhythm Heart Sounds: no murmur Vessels: posterior tibial pulses present, dorsalis pedis pulses present and radial pulses present; no JVD and no carotid bruit Extremities: no edema Gastrointestinal (Abdomen): Inspection/Auscultation: abdomen normal to inspection and normal bowel sounds; abdomen not distended Percussion/Palpation: + abdomen tender (slight ttp in epigastric region ) Musculoskeletal: Head/Neck/Chest: normocephalic and head atraumatic Neurologic: PERRL, EOMI, accommodation nl, no face palsy, no dysarthria Psychiatric: A+Ox3, euthymic affect Lymphatic: no cervical lymphadenopathy Results & Data ([facility]) Vital Signs (Past 12 Hours) Vital Signs Temp Pulse Resp BP Pulse Ox 12/09/19 07:36 65 12/09/19 07:20 65 12/09/19 07:00 37.1 C 71 106/71 97 12/09/19 06:00 70 18 101/55 L 98 12/09/19 05:00 58 L 18 108/71 12/09/19 04:00 67 18 89/50 L 97 12/09/19 03:00 36.6 C 73 18 121/76 96 12/09/19 02:00 63 18 93/52 L 12/09/19 01:00 64 18 93/49 L 97 12/09/19 00:00 37 C 70 18 108/76 12/08/19 23:00 59 L 20 118/69 97 12/08/19 22:00 67 28 H 93/56 L 97 12/08/19 21:00 86 16 120/75 97 Resident Activity Tracking Resident Involvement: Resident Care Provided Care Provided: Adult Hospital Medicine (1) Chest pain Chest pain type: unspecified Qualified Code(s): R07.9 - Chest pain, unspecified
[2019-12-09] MEDS: HEPARIN SOD 5,000 UNIT/0.5 ML VIAL SQ SCH ×3 (08:43→20:52)
[2019-12-09] MEDS: TICAGRELOR 90 MG TAB PO SCH ×2 (08:43→20:52)
[2019-12-09] MEDS: ATORVASTATIN 40 MG TAB PO SCH (08:44)
[2019-12-09] MEDS: METOPROLOL SUCC 25MG EXT REL TAB PO SCH (08:55)
--- NOTE | 2019-12-09 09:01 | Cardiology Consultation ---
Date of Consultation December 09, 2019 Assessment & Plan (1) Acute MD: He suffered an acute myocardial infarction which was in the same distribution as his prior stent in 2013. Part of the cause may have been discontinuation or marked reduction in his antiplatelet agents, he should probably remain on daily aspirin and probably another platelet inhibitor for the foreseeable future rather than for only a short time. Additionally he has not been on a statin apparently from side effects. His cholesterol is elevated. He does not smoke, he is fairly active, he is little overweight but not exceptionally so and he follows a reasonable although not ideal diet. I discussed risk factor modification with him and he is going to try to pursue a better lifestyle. (2) Dyslipidemia: He has dyslipidemia with a non-HDL cholesterol 150, with this (or even if he did not have hypercholesterolemia) he needs to be on a statin but he apparently had problems on Lipitor years ago. We need to try a statin again. I am going to use Crestor as it may have less difficulty and even if he can only tolerate a low dose perhaps it will be enough. Without treatment he will likely be back and other agents besides statins or not very beneficial. (3) Hypertension: His blood pressure is not elevated now, hopefully he can tolerate good doses of beta-blockade for his cardiomyopathy (4) Elevated troponin: His troponin was not terribly elevated in the emergency room but was consistent with his acute presentation, however has become exceptionally high, if it is correct. Not traversing a troponin over 100 before. History of Present Illness Reason for Consultation: STEMI Attending Physician: Ti Archibald MD History of Present Illness This is a 74-year-old male Who has a history of hypertension, dyslipidemia and known coronary disease including an LAD NSTEMI on July 10, 2013. He also has a history of atypical chest discomfort and GERD. He had a mid LAD wall motion abnormality and had mid LAD stenosis for which he had stent placement on that day. Echocardiography at the time showed a mildly reduced left ventricle and ejection fraction of about 45%. On September 29, 2013 he had normal left ventricular size with low normal left ventricular systolic function ejection fraction 50 to 55%. He was supposed to be taking metoprolol succinate 25 mg daily and aspirin 81 mg daily. He tells me that he was on Lipitor remotely, he describes classic muscle weakness from it which resolved with discontinuation and tells me that it "really tore me up". He presented to the emergency room on December 08, 2019 with symptoms of abdominal and chest discomfort starting at about 4:45 AM that day. He notes that he had not been taking his aspirin every day, taking it evidently several times per week. He took 2 aspirin when he had the symptoms, ultimately went to the Director Sports as a heart alert and was found to have an occluded mid LAD for which he had aspiration thrombectomy and drug-eluting stent placement. Post procedure he felt well except when I saw him on December 08, 2019 he was complaining of continued abdominal pain and was not eating well. Today he feels better, he tells me his belly is 100% better, perhaps not quite normal, I am not sure if this is residual from his myocardial infarction. He has no other complaints. He has been out of bed in the room in ICU but not out in the hallway. Allergies Allergy/AdvReac Type Severity Reaction Status Date / Time No Known Allergies Allergy Verified 12/08/19 10:06 Home Medications Home Medications Medication Instructions Recorded Confirmed Type aspirin [Aspir-81] 81 mg PO DAILY PRN 08/06/18 12/08/19 History metoprolol succinate 25 mg PO QAM 08/06/18 12/08/19 History Patient History Medical History Hypertension Myocardial infarction Surgical History History of coronary artery stent placement Family History Other No pertinent family history in first degree relatives Social History Preferred Language: Mongolian Ged Tutor Required: No Beliefs That Will Affect Care: None Current Living Situation: Spouse Other Information That Helps Us Care for You: No Feels Safe at Home: Yes Safety Concerns: Feels Safe At This Time Smoking Status: Never smoker Hx Alcohol Use: No Hx Substance Use: No Review of Systems Review of Systems: All systems reviewed & are unremarkable except as noted in HPI & below Physical Exam Physical Exam: Constitutional: Alert, cooperative and in no distress. HEENT: Unremarkable Neck: No jugular venous distention, carotid pulses are normal and equal bilaterally without bruits. Pulmonary: Clear to auscultation bilaterally. Cardiac: Regular rhythm with no murmur, gallop or rub. Abdomen: Soft, nontender with normal bowel sounds. Extremities: No edema. Distal pulses intact. Neurologic: No focal findings. Gait is steady. Skin: No rash, ecchymoses or petechiae. Results & Data ([facility]) Vital Signs (Past 12 Hours) Vital Signs Temp Pulse Resp BP Pulse Ox 12/09/19 07:36 65 12/09/19 07:20 65 12/09/19 07:00 37.1 C 71 106/71 97 12/09/19 06:00 70 18 101/55 L 98 12/09/19 05:00 58 L 18 108/71 12/09/19 04:00 67 18 89/50 L 97 12/09/19 03:00 36.6 C 73 18 121/76 96 12/09/19 02:00 63 18 93/52 L 12/09/19 01:00 64 18 93/49 L 97 12/09/19 00:00 37 C 70 18 108/76 12/08/19 23:00 59 L 20 118/69 97 12/08/19 22:00 67 28 H 93/56 L 97 Laboratory Results Cardiac Enzymes 12/08/19 12/09/19 Range/Units 08:50 05:27 AST 16 (15-37) U/L Troponin I 0.212 H* 102.000 H* (0-0.045) ng/ml Coagulation 12/08/19 Range/Units 08:50 PT 11.0 (9.0-12.0) Seconds APTT 23.9 (21.0-31.0) Seconds Lipids 12/09/19 Range/Units 05:27 Triglycerides 217 H (0-150) mg/dl Cholesterol 185 (0-200) mg/dl HDL Cholesterol 34 mg/dl Cholesterol/HDL Ratio 5 Comprehensive Metabolic Panel 12/08/19 12/09/19 Range/Units 08:50 05:27 Sodium 138 136 (136-145) mmol/L Potassium 3.5 3.8 (3.5-5.1) mmol/L Chloride 106 106 (98-107) mmol/L Carbon Dioxide 24 23 (21-32) mmol/L BUN 15 14 (7-18) mg/dl Creatinine 1.24 1.14 (0.6-1.4) mg/dl Glucose 121 H 101 H (70-99) mg/dl Calcium 8.8 8.7 (8.5-10.1) mg/dl AST 16 (15-37) U/L ALT 23 (12-78) U/L Alkaline Phosphatase 75 (45-117) U/L Total Protein 7.4 (6.4-8.2) gm/dl Albumin 3.6 (3.4-5.0) gm/dl Intake and Output 12/08/19 12/09/19 12/09/19 22:59 06:59 14:59 Intake Total 280 / 1100 200 / 1100 120 / 120 Output Total 700 / 1450 500 / 1450 Balance -420 / -350 -300 / -350 120 / 120 Intake: Oral 280 / 540 140 / 540 120 / 120 Tube Feeding 60 / 60 Output: Urine 700 / 1450 500 / 1450 Other 0 / 0 Other: Weight 84.5 kg Diagnostic Findings A post procedure electrocardiogram yesterday is a very poor quality tracing but demonstrates sinus rhythm with very poor R wave progression. An echocardiogram done December 08, 2019 post intervention shows normal left ventricular size with moderate left ventricular dysfunction and ejection fraction of 35 to 40% including an anteroapical akinetic region. There is mild mitral regurgitation and at most mild aortic stenosis. This shows a further decline in ejection fraction from his prior studies. Telemetry: Sinus rhythm with PVCs, no sustained arrhythmia His non-HDL cholesterol drawn this morning is 150. PG Care Time/CCT Total # of Minutes Spent Total Time Spent with Patient: Total time spent is greater than 50% in coordination of care (as documented) at patient's floor/unit and/or counseling patient: Coding Level of Care Code 03406 Initial Inpt Care Lvl 3 Diagnoses Acute MD I21.3 Involved coronary artery: unspecified coronary artery Myocardial infarction type: ST elevation myocardial infarction Dyslipidemia E78.5 Hypertension I10 Elevated troponin R79.89 (1) Acute MD Involved coronary artery: unspecified coronary artery Myocardial infarction type: ST elevation myocardial infarction Qualified Code(s): I21.3 - ST elevation (STEMI) myocardial infarction of unspecified site
--- NOTE | 2019-12-09 09:11 | Billing Data ---
Date of Service December 09, 2019 Coding Level of Care Code 80048 Initial Inpt Care Lvl 3
[2019-12-09] MEDS: ASPIRIN 81 MG ECTAB PO SCH (09:18)
--- NOTE | 2019-12-09 11:43 | Electrocardiogram Report ---
Test Reason : Blood Pressure : / mmHG Vent. Rate : 080 BPM Atrial Rate : 080 BPM P-R Int : 174 ms QRS Dur : 092 ms QT Int : 394 ms P-R-T Axes : 056 -68 038 degrees QTc Int : 454 ms Poor data quality, interpretation may be adversely affected Normal sinus rhythm Left anterior fascicular block Septal infarct (cited on or before 08-DEC-2019) Lateral infarct , age undetermined Abnormal ECG When compared with ECG of 08-DEC-2019 10:08, No significant change Confirmed by Jerman Painter ([id number]) on 12/09/2019 11:43:26 AM Referred By: REFERRED SELF Confirmed By:Jerman Painter
[2019-12-09 12:37] LABS: Basophils # (auto) 0.01 K/uL (0-0.2); Basophils % (auto) 0.2 %; Eosinophils # (auto) 0.02 K/uL (0-0.5); Eosinophils % (auto) 0.3 %; Hematocrit (blood only) 38.9 % (42-52); Hemoglobin 13.5 g/dL (14.0-18.0); Immature Granulocytes # (auto) 0.02 K/uL (0.00-0.02); Immature Granulocytes % (auto) 0.3 %; Lymphocytes # (auto) 1.07 K/uL (1.2-3.4); Lymphocytes % (auto) 18.6 %; Mean Corpuscular Hemoglobin 32.1 pg (25-34); Mean Corpuscular Hgb Conc 34.7 g/dL (32-36); Mean Corpuscular Volume 92.4 fL (80-100); Mean Platelet Volume 11.3 fL (7.4-10.4); Monocytes # (auto) 0.89 K/uL (0.11-0.59); Monocytes % (auto) 15.5 %; Neutrophils # (auto) 3.75 K/uL (1.4-6.5); Neutrophils % (auto) 65.1 %; Platelet Count 130 K/uL (130-400); RDW Coefficient of Variation 13.4 % (11.5-14.5); Red Blood Count 4.21 M/uL (4.7-6.1); White Blood Count 5.76 K/uL (4.8-10.8)
--- NOTE | 2019-12-09 15:27 | Electrocardiogram Report ---
Test Reason : Blood Pressure : / mmHG Vent. Rate : 075 BPM Atrial Rate : 075 BPM P-R Int : 160 ms QRS Dur : 092 ms QT Int : 428 ms P-R-T Axes : 020 -54 152 degrees QTc Int : 477 ms Poor data quality, interpretation may be adversely affected Normal sinus rhythm Left anterior fascicular block Septal infarct (cited on or before 08-DEC-2019) Possible Lateral infarct (cited on or before 08-DEC-2019) T wave abnormality, consider anterior ischemia Abnormal ECG When compared with ECG of 08-DEC-2019 11:56, (unconfirmed) Serial changes of Septal infarct Present Confirmed by David Easley ([id number]) on 12/09/2019 3:27:34 PM Referred By: REFERRED SELF Confirmed By:David Easley
[2019-12-10] MEDS: HEPARIN SOD 5,000 UNIT/0.5 ML VIAL SQ SCH ×2 (05:32→13:59)
[2019-12-10 07:47] LABS: BUN Creatinine Ratio 14.4 (10-20); Calcium 8.5 mg/dl (8.5-10.1); Creatinine Clr Calc Pharmacy 55.9 ml/min; Est GFR (African American) 67.7; Est GFR (Non-African American) 58.5; Potassium 4.1 mmol/L (3.5-5.1)
[2019-12-10] MEDS: ASPIRIN 81 MG ECTAB PO SCH (08:29)
[2019-12-10] MEDS: METOPROLOL SUCC 25MG EXT REL TAB PO SCH (08:30)
[2019-12-10] MEDS: TICAGRELOR 90 MG TAB PO SCH (08:30)
[2019-12-10] MEDS ORDERED: ROSUVASTATIN CALCIUM 5 MG TAB PO SCH (09:00)
[2019-12-10] MEDS ORDERED: lisinopriL 5 MG TAB PO SCH (10:15)
--- NOTE | 2019-12-10 12:03 | Cardiology Progress Note ---
Date of Service December 10, 2019 Assessment & Plan (1) ACS (acute coronary syndrome): (2) Dyslipidemia: (3) Hypertension: (4) LV dysfunction: 1. Acute coronary syndrome --post aspiration thrombectomy, PCI with 2 overlapping HUMBERTO to mid LAD 2. Residual significant RCA stenosis 3. LV dysfunction 4. Dyslipidemia-- statin intolerant 5. Hypertension Patient doing well post ACS and PCI to mid LAD 12/08/19. No recurrent anginal symptoms and able to walk the halls without limiting cardiac symptoms. Echo shows moderate LV dysfunction. On exam appears well perfused without signs of heart failure. No right radial access site complications. --OK to discharge home today from cardiac standpoint with 2 week f/u --Dual antiplatelet therapy with ticagrelor, aspirin for minimum of one year. Emphasized importance of antiplatelet therapy --Recommend guideline based medical therapy. Continue current metoprolol succinate. Start lisinopril 5 mg daily. Check BMP 1 week --History of statin intolerance, started on low dose Crestor. Consider PCSK9 inhibitor of unable to tolerate or does not reach LDL goal --Consult cardiac rehab Admission and Anticipated Discharge Date Admission Date: December 08, 2019 Supervising Physician Co-Signing Physician Notes Patient seen and examined with Lexi. Agree with above. Doing well post acute intervention. Subjective On 12/08/19 presented with ACS and is post aspiration thrombectomy and PCI of mid LAD in-stent thrombosis with 2 overlapping HUMBERTO (mid LAD and extending past distal stenosis). Also with proximal 70-80% RCA stenosis. Patient admitted he was only taking his aspirin several days per week due to simply forgetting it. History of statin intolerance, significant myalgias on atorvastatin. Started on Crestor yesterday, tolerating so far. Patient is feeling well today and is anxious to go home. He denies any recurrent chest pain. Has been walking the halls without limiting cardiac symptoms. No shortness of breath, orthopnea, PND or edema. No palpitations. No right radial access site issues. Tele reviewed -- no events. Echo shows moderately reduced LV systolic function (EF 35-40%) and anteroapical infarct. Review of Systems Review of Systems: All systems reviewed & are unremarkable except as noted in HPI & below Physical Exam Physical Exam: General: No acute distress, comfortable. HEENT: Head is normal. PERRLA. EOMI. Sclerae anicteric. Ears, nose and throat unremarkable. Mucous membranes moist. Neck: Normal carotid upstrokes, no bruits. No appreciable JVD. Lungs: Clear to auscultation bilaterally without rales, rhonchi or wheezes. Cardiac: Regular rate and rhythm. S1-S2 normal. No appreciable murmur, gallop or rub. Abdomen: Soft and nontender. Bowel sounds normal. No mass or organomegaly. No abdominal bruit. Extremities/vascular: --Well perfused. No peripheral edema. --Radial, DP and PT pulses 2+ bilaterally --Rt radial access site without hematoma or ecchymosis. Distal pulse, sensation intact. Skin: No rash or abnormal lesions. Normal turgor. Neurologic: Nonfocal Psychiatric: Affect appropriate. Alert and oriented. Results & Data ([facility]) Vital Signs (Past 12 Hours) Vital Signs Temp Pulse Resp BP Pulse Ox 12/10/19 11:11 36.7 C 71 16 99/64 L 98 12/10/19 07:53 37.1 C 71 16 105/68 98 12/10/19 04:00 36.7 C 75 20 104/72 96 Laboratory Results Laboratory Results - last 24 hr 12/09/19 12/09/19 12/10/19 05:27 12:11 06:41 WBC 5.76 RBC 4.21 L Hgb 13.5 L Hct 38.9 L MCV 92.4 MCH 32.1 MCHC 34.7 RDW Std Deviation 45.0 RDW Coeff of Lee 13.4 Plt Count 130 MPV 11.3 H Immature Gran % (Auto) 0.3 Neut % (Auto) 65.1 Lymph % (Auto) 18.6 Swisher % (Auto) 15.5 Eos % (Auto) 0.3 Baso % (Auto) 0.2 Immature Gran # (Auto) 0.02 Neut # (Auto) 3.75 Lymph # (Auto) 1.07 L Swisher # (Auto) 0.89 H Eos # (Auto) 0.02 Baso # (Auto) 0.01 Sodium 139 Potassium 4.1 Chloride 110 H Carbon Dioxide 23 Anion Gap 6.0 BUN 18 Creatinine 1.22 Est Cr Clr Drug Dosing 55.9 Est GFR ( Amer) 67.7 Est GFR (Non-Af Amer) 58.5 BUN/Creatinine Ratio 14.4 Glucose 104 H Calcium 8.5 Troponin I 75.200 H* PG Care Time/CCT Total # of Minutes Spent Total Time Spent with Patient: Total time spent is greater than 50% in coordination of care (as documented) at patient's floor/unit and/or counseling patient: Coding Level of Care Code 24391 Subseq Hosp Care Lvl 3 Diagnoses ACS (acute coronary syndrome) I24.9 Dyslipidemia E78.5 Hypertension I10 LV dysfunction I51.9
--- NOTE | 2020-02-18 09:32 | Discharge Summary ---
Date of Service February 18, 2020 Admission HPI Per Admitting Provider This is a 74-year-old male Who has a history of hypertension, dyslipidemia and known coronary disease including an LAD NSTEMI on July 10, 2013. He also has a history of atypical chest discomfort and GERD. He had a mid LAD wall motion abnormality and had mid LAD stenosis for which he had stent placement on that day. Echocardiography at the time showed a mildly reduced left ventricle and ejection fraction of about 45%. On September 29, 2013 he had normal left ventricular size with low normal left ventricular systolic function ejection fraction 50 to 55%. He was supposed to be taking metoprolol succinate 25 mg daily and aspirin 81 mg daily. He tells me that he was on Lipitor remotely, he describes classic muscle weakness from it which resolved with discontinuation and tells me that it "really tore me up". He presented to the emergency room on December 08, 2019 with symptoms of abdominal and chest discomfort starting at about 4:45 AM that day. He notes that he had not been taking his aspirin every day, taking it evidently several times per week. He took 2 aspirin when he had the symptoms, ultimately went to the [facility] as a heart alert and was found to have an occluded mid LAD for which he had aspiration thrombectomy and drug-eluting stent placement. Post procedure he felt well except when I saw him on December 08, 2019 he was complaining of continued abdominal pain and was not eating well. Today he feels better, he tells me his belly is 100% better, perhaps not quite normal, I am not sure if this is residual from his myocardial infarction. He has no other complaints. He has been out of bed in the room in ICU but not out in the hallway. Admission Exam (Per Admitting) Constitutional General: No acute distress, comfortable. HEENT: Head is normal. PERRLA. EOMI. Sclerae anicteric. Ears, nose and throat unremarkable. Mucous membranes moist. Neck: Normal carotid upstrokes, no bruits. No appreciable JVD. Lungs: Clear to auscultation bilaterally without rales, rhonchi or wheezes. Cardiac: Regular rate and rhythm. S1-S2 normal. No appreciable murmur, gallop or rub. Abdomen: Soft and nontender. Bowel sounds normal. No mass or organomegaly. No abdominal bruit. Extremities/vascular: --Well perfused. No peripheral edema. --Radial, DP and PT pulses 2+ bilaterally --Rt radial access site without hematoma or ecchymosis. Distal pulse, sensation intact. Skin: No rash or abnormal lesions. Normal turgor. Neurologic: Nonfocal Psychiatric: Affect appropriate. Alert and oriented. Discharge Data Consultations 12/08/19 11:24 Consult Instantizer Operator Routine 12/08/19 13:07 Consult Cardiology Routine Procedures Performed Operation Date: 12/08/19 10:15 Actual Procedures p Aspiration/PCI w/HUMBERTO for Stemi - Ti Archibald MD s Cineradiography w/Routine Exam - Ti Archibald MD s Cath, Left with Cors and Vent - Peter Edmond MD Hospital Course (1) LV dysfunction: Pt admitted with STEMI, underwent emergent cardiac cath with PCI to mid LAD with 2 overlapping HUMBERTO. Performed by Dr. Archibald. No complications. 1. Acute coronary syndrome --post aspiration thrombectomy, PCI with 2 overlapping HUMBERTO to mid LAD 2. Residual significant RCA stenosis 3. LV dysfunction 4. Dyslipidemia-- statin intolerant 5. Hypertension Patient doing well post ACS and PCI to mid LAD 12/08/19. No recurrent anginal symptoms and able to walk the halls without limiting cardiac symptoms. Echo shows moderate LV dysfunction. On exam appears well perfused without signs of heart failure. No right radial access site complications. --OK to discharge home today from cardiac standpoint with 2 week f/u --Dual antiplatelet therapy with ticagrelor, aspirin for minimum of one year. Emphasized importance of antiplatelet therapy --Recommend guideline based medical therapy. Continue current metoprolol succinate. Start lisinopril 5 mg daily. Check BMP 1 week --History of statin intolerance, started on low dose Crestor. Consider PCSK9 inhibitor of unable to tolerate or does not reach LDL goal --Consult cardiac rehab Coding Level of Care Code D/C Day Management <30 mins Diagnoses LV dysfunction I51.9
== END 2019-12-10 15:50 | disposition home or self-care (01) | DRG 247 ==
LOC: ED 08:39 → CC 11:00 → 1E 11:23 → 2N 12-09 08:57